=== PATIENT | female | born 1930 | race Caucasian/White ===

== ENCOUNTER 2016-12-24 18:45 | Emergency (ER) | payer MEDICARE, BC ==
[~2016-12-24] VITALS: Ht 152.4 cm; Wt 75.5 kg
[~2016-12-24 18:45] MED LIST: AMLO10 PO; Docusate Sod/Senna PO; GLUCTAB PO; LACT PO; LASI20TA PO; METO25CR PO; MIRA33502 PO; POTA-267 PO; RIVA20 PO; SYNT25TA PO; ZOCO80TA PO
[2016-12-24 18:48] VITALS: BP 142/79; PULSE 98; RESP 16; TEMP 98.2; O2SAT 98
[2016-12-24 19:09] VITALS: BP 183/83; PULSE 113; RESP 18; O2SAT 97
--- NOTE | 2016-12-24 19:23 | PD ---
HPI Chief Complaint: Pain: Acute or Chronic Time Seen by Provider: 19:19 Travel History International Travel<30 days: No Contact w/Intl Traveler<30days: No Traveled to known affect area: No History of Present Illness HPI 86-year-old female with history of multiple medical issues, presents to the ER today with sudden onset of left jaw pain last night, worsens with movement, is currently a 3 out 10 but she states initially started with an 8 out of 10. She denies any trouble swallowing, breathing, fevers, or any other symptoms. She had called her insurance line was told to come into be checked out. Modifying Factors: None Associated Signs & Symptoms: Left jaw pain Risk Factors: None PFSH Past Medical History Hx Anticoagulant Therapy: Yes Arthritis: Yes Asthma: No Autoimmune Disease: No Blood Disorders: No Anxiety: No Depression: No Heart Rhythm Problems: No Cancer: No Cardiovascular Problems: Yes (OPEN HEART, HTN, CHOL) High Cholesterol: Yes Chemotherapy: No Chest Pain: Yes (OCCAISIONALLY) Congestive Heart Failure: No (PT IS NOT SURE) COPD: No Cerebrovascular Accident: Yes (CVA) Diabetes: Yes Diminished Hearing: No Endocrine: No Gastrointestinal Disorders: Yes GERD: No Glaucoma: No Genitourinary: No Headaches: No Hepatitis: No Hiatal Hernia: No Hypertension: Yes Immune Disorder: No Kidney Stones: No Musculoskeletal: Yes Neurologic: Yes Psychiatric: No Reproductive: No Respiratory: No Immunizations Current: Yes Migraines: No Myocardial Infarction: No Radiation Therapy: No Renal Failure: No Seizures: No Sickle Cell Disease: No Sleep Apnea: No Thyroid Disease: No Ulcer: No ?: Not Menopausal: Yes : 1 Para: 1 Miscarriage: 0 : 0 Past Surgical History Abdominal Surgery: Yes AICD: No Appendectomy: Yes Arteriovenous Shunt: No Cardiac Surgery: No Cholecystectomy: No Coronary Artery Bypass Graft: Yes Ear Surgery: No Endocrine Surgery: No Eye Surgery: No Genitourinary Surgery: Yes (BOWEL RESECTION) Gynecologic Surgery: Yes (HYSTERECTOMY ) Hysterectomy: Yes Insulin Pump: No Joint Replacement: Yes (PARTIAL RT HIP) Oral Surgery: No Pacemaker: No Thoracic Surgery: Yes (OPEN HEART SURGERY WITH DOUBLE BYPASS 2008) Tonsillectomy: Yes Other Surgery: Yes (TONSILLECTOMY) Social History Alcohol Use: Yes (OCCASIONALLY) Tobacco Use: No Substance Use: No Allergies-Medications (Allergen,Severity, Reaction): Coded Allergies: No Known Allergies (Verified , 12/24/16) Reported Meds & Prescriptions Reported Meds & Active Scripts Active Reported Vitamin D3 (Cholecalciferol) 1,000 Unit Cap 1,000 Units PO DAILY Amlodipine (Amlodipine Besylate) 5 Mg Tab 5 Mg PO DAILY Clopidogrel (Clopidogrel Bisulfate) 75 Mg Tab 75 Mg PO DAILY Levothyroxine (Levothyroxine Sodium) 25 Mcg Tab 25 Mcg PO DAILY Losartan (Losartan Potassium) 25 Mg Tab 25 Mg PO DAILY Metformin (Metformin HCl) 1,000 Mg Tab 1,000 Mg PO BIDPC With meals Metoprolol Succinate ER 24 HR (Metoprolol Succinate) 25 Mg Tab 25 Mg PO DAILY Atorvastatin (Atorvastatin Calcium) 20 Mg Tab 20 Mg PO HS Review of Systems Except as stated in HPI: all other systems reviewed are Neg Physical Exam Narrative GENERAL: Well-developed elderly white female patient currently in mild distress. Awake and oriented 3. SKIN: Focused skin assessment warm/dry. HEAD: Atraumatic. Normocephalic. There is a notable tenderness and edema over the left mandible above the ankle, no underlying obvious fluctuance. No point tenderness. No claudication. EYES: Pupils equal and round. No scleral icterus. No injection or drainage. ENT: No nasal bleeding or discharge. Mucous membranes pink and moist. I do not see any signs of pus drainage. EARS: Bilateral pinnae and external canals appear within normal limits. Bilateral tympanic membranes without erythema, dullness or perforation. NECK: Trachea midline. No JVD. CARDIOVASCULAR: Regular rate and rhythm. No murmur appreciated. RESPIRATORY: No accessory muscle use. Clear to auscultation. Breath sounds equal bilaterally. GASTROINTESTINAL: Abdomen soft, non-tender, nondistended. Hepatic and splenic margins not palpable. MUSCULOSKELETAL: No obvious deformities. No clubbing. No cyanosis. No edema. NEUROLOGICAL: Awake and alert. No obvious cranial nerve deficits. Motor grossly within normal limits. Normal speech. PSYCHIATRIC: Appropriate mood and affect; insight and judgment normal. Data Data Last Documented VS Vital Signs Date Time Temp Pulse Resp B/P Pulse Ox O2 Delivery O2 Flow Rate FiO2 12/24/16 19:09 113 18 183/83 97 Room Air 12/24/16 18:48 98.2 Orders Complete Blood Count With Diff (12/24/16 19:19) Basic Metabolic Panel (Bmp) (12/24/16 19:19) Ct Facial Bones W Iv Contrast (12/24/16 ) Iohexol 350 Inj (Omnipaque 350 Inj) (12/24/16 21:14) Blood Culture (12/24/16 21:48) Clindamycin Inj (Cleocin Inj) (12/24/16 22:00) Labs Laboratory Tests Test 12/24/16 19:37 White Blood Count 13.1 TH/MM3 Red Blood Count 5.17 MIL/MM3 Hemoglobin 14.7 GM/DL Hematocrit 44.7 % Mean Corpuscular Volume 86.6 FL Mean Corpuscular Hemoglobin 28.4 PG Mean Corpuscular Hemoglobin 32.8 % Concent Red Cell Distribution Width 14.2 % Platelet Count 305 TH/MM3 Mean Platelet Volume 7.6 FL Neutrophils (%) (Auto) 71.4 % Lymphocytes (%) (Auto) 20.2 % Monocytes (%) (Auto) 7.6 % Eosinophils (%) (Auto) 0.4 % Basophils (%) (Auto) 0.4 % Neutrophils # (Auto) 9.3 TH/MM3 Lymphocytes # (Auto) 2.6 TH/MM3 Monocytes # (Auto) 1.0 TH/MM3 Eosinophils # (Auto) 0.1 TH/MM3 Basophils # (Auto) 0.1 TH/MM3 CBC Comment DIFF FINAL Differential Comment Sodium Level 143 MEQ/L Potassium Level 3.9 MEQ/L Chloride Level 107 MEQ/L Carbon Dioxide Level 28.3 MEQ/L Anion Gap 8 MEQ/L Blood Urea Nitrogen 15 MG/DL Creatinine 0.91 MG/DL Estimat Glomerular Filtration 58 ML/MIN Rate Random Glucose 189 MG/DL Calcium Level 10.0 MG/DL [facility] Medical Decision Making Medical Screen Exam Complete: Yes Emergency Medical Condition: Yes Medical Record Reviewed: Yes Interpretation(s) Laboratory Tests Test 12/24/16 19:37 White Blood Count 13.1 TH/MM3 (4.0-11.0) Neutrophils (%) (Auto) 71.4 % (16.0-70.0) Neutrophils # (Auto) 9.3 TH/MM3 (1.8-7.7) Monocytes # (Auto) 1.0 TH/MM3 (0-0.9) Estimat Glomerular Filtration 58 ML/MIN (>89) Rate Random Glucose 189 MG/DL (74-106) Last [address] 12/24/16 0000 Signed Impressions: Service Date/Time: Saturday, December 24, 2016 20:48 - CONCLUSION: 1. The left parotid gland is enlarged and more indistinct than the right. There is mild surrounding inflammatory change most characteristic of inflammation or infection. There is no focal mass or calcification. 2. The mandible is intact with no underlying bony abnormality. Qamar Lr MD Differential Diagnosis Left jaw painmandibular dislocation versus parotiditis versus TMJ Narrative Course CAT scan is showing signs of prostatitis. It appears that according to her and her friends, symptoms started yesterday but became more apparent in the evening. She does not have any underlying bony issues. At this point, patient is afebrile and as precaution, IV antibiotics will be given. There are no signs of underlying abscess. She does not appear acutely ill. Cultures will be taken a my plan would be to release her with close follow-up to primary care physician. She should return for any worsening in symptoms. The plan has been discussed with her and she states understanding. Diagnosis Primary Impression: Parotitis Med/Other Pt SpecificInfo: Prescription(s) given Scripts Clindamycin 300 Mg [id number] Mg PO TID #21 CAP Ref 0 Prov:Luly Flowers MD 12/24/16 Ibuprofen (Motrin Ib)200 Mg [id number] Mg PO QID PRN (PAIN SCALE 1 TO 10) #20 Prov:Luly Flowers MD 12/24/16 Disposition: 01 DISCHARGE HOME Condition: Stable Luly Flowers MD Dec 24, 2016 19:23
[2016-12-24 19:44] LABS: AUTOMATED NEUTROPHIL # 9.3 TH/MM3 (1.8-7.7); BASOPHIL # 0.1 TH/MM3 (0-0.2); BASOPHIL % 0.4 % (0.0-2.0); EOSINOPHIL # 0.1 TH/MM3 (0-0.4); EOSINOPHIL % 0.4 % (0.0-4.0); HEMATOCRIT 44.7 % (35.0-46.0); HEMO FLAGS DIFF FINAL; LYMPH % 20.2 % (9.0-44.0); LYMPHOCYTE # 2.6 TH/MM3 (1.0-4.8); MEAN CELL VOLUME 86.6 FL (80.0-100.0); MEAN CORPUSCULAR HEMOGLOBIN 28.4 PG (27.0-34.0); MEAN CORPUSCULAR HGB CONC 32.8 % (32.0-36.0); MONO % 7.6 % (0.0-8.0); NEUT % 71.4 % (16.0-70.0); PLATELET COUNT 305 TH/MM3 (150-450); RED BLOOD COUNT 5.17 MIL/MM3 (4.00-5.30); RED CELL DISTRIBUTION WIDTH 14.2 % (11.6-17.2); WHITE BLOOD COUNT 13.1 TH/MM3 (4.0-11.0)
[2016-12-24] MEDS ORDERED: CLOP75TA PO (19:44)
[2016-12-24] MEDS ORDERED: VITA100036 PO (19:44)
[2016-12-24] MEDS ORDERED: METF1000 PO (19:44)
[2016-12-24] MEDS ORDERED: ATOR20TA15 PO (19:44)
[2016-12-24] MEDS ORDERED: AMLO5TAB2 PO (19:44)
[2016-12-24] MEDS ORDERED: LEVO25TA4 PO (19:44)
[2016-12-24] MEDS ORDERED: METO25TA6 PO (19:44)
[2016-12-24] MEDS ORDERED: LOSA25TA PO (19:44)
[2016-12-24 19:56] LABS: POTASSIUM 3.9 MEQ/L (3.5-5.1)
[2016-12-24 19:59] LABS: BICARBONATE 28.3 MEQ/L (21.0-32.0)
[2016-12-24 20:20] VITALS: BP 172/79; PULSE 82; RESP 18; O2SAT 97
[2016-12-24] MEDS ORDERED: IOHEXOL 350 MG/ML 10 ML VIAL (for RAD DIAG) IV ONE (21:14)
--- NOTE | 2016-12-24 21:29 | RADRPT ---
EXAM DATE/TIME: 12/24/2016 20:48 [facility] COMPARISON: No previous studies available for comparison. INDICATIONS : Left jaw pain and swelling. Difficulty eating. IV CONTRAST: 70 cc Omnipaque 350 (iohexol) IV RADIATION DOSE: 29.69 CTDIvol (mGy) MEDICAL HISTORY : Hypertension. Hypercholesterolemia. Cardiovascular diseaseDiabetic, CVA SURGICAL HISTORY : Open heart ENCOUNTER: Initial ACUITY: 1 day PAIN SCALE: 9/10 LOCATION: Left facial tmj area TECHNIQUE: Volumetric scanning of the facial bones was performed. Using automated exposure control and adjustme nt of the mA and/or kV according to patient size, radiation dose was kept as low as reasonably achiev able to obtain optimal diagnostic quality images. DICOM format image data is available electronicall y for review and comparison. FINDINGS: ORBITS: The orbital and infraorbital osseous structures are intact. The retroconal structures have a normal configuration. No radiopaque foreign bodies are seen. The mandible is intact. NASAL BONE: The nasal bone and maxillary spine are intact ZYGOMATIC ARCHES: Symmetric without evidence of fracture. SINUSES: The maxillary, ethmoid and frontal sinuses are intact. No air-fluid levels seen. NASAL CAVITY: The nasal septum is intact and midline. The lacrimal ducts are intact. SOFT TISSUES: No radiopaque foreign bodies seen. The left parotid gland is enlarged and more inhomogeneous than the right with apparent mild surrounding inflammatory change. There is no focal mass. There are no abnor mal calcifications. INTRACRANIAL: No intracranial air seen. CRIBIFORM PLATE: Grossly intact. CONCLUSION: 1. The left parotid gland is enlarged and more indistinct than the right. There is mild surrounding i nflammatory change most characteristic of inflammation or infection. There is no focal mass or calcif ication. 2. The mandible is intact with no underlying bony abnormality. Qamar Lr MD on December 24, 2016 at 21:23 Board Certified Radiologist. This report was verified electronically.
[2016-12-24 21:30] VITALS: BP 168/82; PULSE 78; RESP 17; O2SAT 97
[2016-12-24] MEDS ORDERED: IBUP-1129 PO (22:00)
[2016-12-24] MEDS ORDERED: CLIN1CAP6 PO (22:00)
[2016-12-24] MEDS ORDERED: CLINDAMYCIN INJ 600 MG in SODIUM CHLORIDE 0.9% INJ 100 ML IV ONE (22:00)
[2016-12-24 22:31] VITALS: BP 151/83; PULSE 100; RESP 19; O2SAT 98
[2016-12-24 23:15] VITALS: BP 160/81; TEMP 98
== END 2016-12-24 23:27 | disposition home or self-care (01) ==
LOC: PHED 18:45
DX: K11.20 Sialoadenitis, unspecified (principal)
CPT/HCPCS: 70487; 80048; 85025; 87040; 96365; 99285; Q9967

== ENCOUNTER 2017-10-27 08:36 | Emergency (ER) | payer MEDICARE, BC ==
[~2017-10-27] VITALS: Ht 157.5 cm; Wt 70.4 kg
[~2017-10-27 08:36] MED LIST changes: -AMLO10 PO; +AMLO5TAB2 PO; +ATOR20TA15 PO; +CHOL10008 PO; +CLIN300C5 PO; +CLOP75TA PO; -Docusate Sod/Senna PO; -GLUCTAB PO; +IBUP-1129 PO; -LACT PO; -LASI20TA PO; +LEVO25TA4 PO; +LOSA25TA PO; +METF1000 PO; +METO1TAB42 PO; -METO25CR PO; -MIRA33502 PO; -POTA-267 PO; -RIVA20 PO; -SYNT25TA PO; -ZOCO80TA PO
[2017-10-27 08:39] VITALS: BP 138/66; PULSE 87; RESP 16; TEMP 97.7; O2SAT 95
--- NOTE | 2017-10-27 09:18 | PD ---
HPI Chief Complaint: Fall Time Seen by Provider: 09:00 Travel History International Travel<30 days: No Contact w/Intl Traveler<30days: No Traveled to known affect area: No History of Present Illness HPI 87-year-old female with a history of CVA with right-sided residual weakness presents emergency department for evaluation of low back, right hip and right leg pain after a fall that occurred this morning. Patient states that she was walking to the bathroom when her leg "buckled" and she fell to the ground onto her right hip. Patient states that she was unable to stand up and required the assistance of her daughter to get up. Patient says that her lower lumbar spine is painful, mild to moderate in severity, worse with movement that decreases with rest and nonradiating. Patient also states that she has some right hip and right leg pain that is also worse with movement. Denies numbness or tingling the extremities. Denies fever, chills, loss of bowel or bladder function, IV drug use, saddle anesthesia. Says she does have a history of arthritis in the right knee as well. Denies head trauma, loss of consciousness. Says she is on Plavix for her previous CVA. She has no other complaints today. PFSH Past Medical History Hx Anticoagulant Therapy: Yes (CLOPEDIGREL) Arthritis: Yes Asthma: No Autoimmune Disease: No Blood Disorders: No Anxiety: No Depression: No Heart Rhythm Problems: No Cancer: No Cardiovascular Problems: Yes (OPEN HEART, HTN, CHOL) High Cholesterol: Yes Chemotherapy: No Chest Pain: Yes (OCCAISIONALLY) COPD: No Cerebrovascular Accident: Yes (CVA) Diabetes: Yes (METFORMIN) Patient Takes Glucophage: Yes Diminished Hearing: No Endocrine: No Gastrointestinal Disorders: Yes GERD: No Glaucoma: No Genitourinary: No Headaches: No Hepatitis: No Hiatal Hernia: No Hypertension: Yes Immune Disorder: No Kidney Stones: No Musculoskeletal: Yes Neurologic: Yes Psychiatric: No Reproductive: No Respiratory: No Immunizations Current: Yes Migraines: No Myocardial Infarction: No Radiation Therapy: No Renal Failure: No Seizures: No Sickle Cell Disease: No Sleep Apnea: No Thyroid Disease: No Ulcer: No Influenza Vaccination: No Menopausal: Yes : 1 Para: 1 Miscarriage: 0 : 0 Past Surgical History Abdominal Surgery: Yes AICD: No Appendectomy: Yes Arteriovenous Shunt: No Cardiac Surgery: No Cholecystectomy: No Coronary Artery Bypass Graft: Yes Ear Surgery: No Endocrine Surgery: No Eye Surgery: No Genitourinary Surgery: Yes (BOWEL RESECTION) Gynecologic Surgery: Yes (HYSTERECTOMY ) Hysterectomy: Yes Insulin Pump: No Joint Replacement: Yes (PARTIAL RT HIP) Oral Surgery: No Pacemaker: No Thoracic Surgery: Yes (OPEN HEART SURGERY WITH DOUBLE BYPASS 2008) Tonsillectomy: Yes Other Surgery: Yes (TONSILLECTOMY) Social History Alcohol Use: Yes (SOC) Tobacco Use: No Substance Use: No Allergies-Medications (Allergen,Severity, Reaction): Coded Allergies: No Known Allergies (Verified Adverse Reaction, Unknown, 10/27/17) Reported Meds & Prescriptions Reported Meds & Active Scripts Active Reported Vitamin D3 (Cholecalciferol) 1,000 Unit Cap 1,000 Units PO DAILY Amlodipine (Amlodipine Besylate) 5 Mg Tab 5 Mg PO DAILY Clopidogrel (Clopidogrel Bisulfate) 75 Mg Tab 75 Mg PO DAILY Levothyroxine (Levothyroxine Sodium) 25 Mcg Tab 25 Mcg PO DAILY Losartan (Losartan Potassium) 25 Mg Tab 25 Mg PO DAILY Metformin (Metformin HCl) 1,000 Mg Tab 1,000 Mg PO BIDPC With meals Metoprolol Succinate ER 24 HR (Metoprolol Succinate) 25 Mg Tab 25 Mg PO DAILY Review of Systems Except as stated in HPI: all other systems reviewed are Neg Physical Exam Narrative GENERAL: Well-nourished, well-developed patient. SKIN: Focused skin assessment warm/dry. HEAD: Normocephalic. EYES: No scleral icterus. No injection or drainage. PERRLA, EOMI NECK: Supple, trachea midline. No JVD or lymphadenopathy. No midline tenderness CARDIOVASCULAR: Regular rate and rhythm without murmurs, gallops, or rubs. RESPIRATORY: Breath sounds equal bilaterally. No accessory muscle use. MUSCULOSKELETAL: No cyanosis, or edema. Right lower extremity-slightly shortened compared to the left, normal per patient. Position of comfort is slightly externally rotated hip. NEUROLOGICAL: Awake and alert. Cranial nerves II through XII intact. Motor and sensory grossly within normal limits. Five out of 5 muscle strength in all muscle groups. Normal speech. BACK: Tenderness palpation without step-offs or deformities to the L1-L2 region. Data Data Last Documented VS Vital Signs Date Time Temp Pulse Resp B/P (MAP) Pulse Ox O2 Delivery O2 Flow Rate FiO2 5/11/18 08:39 97.7 87 16 138/66 (90) [address] Lumb Spine W/O Contrast (10/27/17 ) Pelvis, Ap Only (Routine) (10/27/17 ) Femur (Ap & Lat/2vws) (10/27/17 ) MDM Medical Decision Making Medical Screen Exam Complete: Yes Emergency Medical Condition: Yes Differential Diagnosis R hip, leg: contusion, bursitis, cellulitis, fracture, osteonecrosis, avascular necrosis, sprain, strain: lumbago, sciatica, muscle spasms, fracture, cauda equina syndrome Narrative Course 87-year-old female presents emergency department complaining of low back, right hip, right leg pain after fall that occurred early this morning. Patient states that she was walking to the bathroom when her leg buckled and she fell to the ground. She required assistance of her daughter to stand up. The patient normally walks with a walker and has residual right-sided weakness after CVA. Denies head trauma, loss of consciousness. Denies pain anywhere else. Images ordered for evaluation. Vital signs are stable. Pt will be discharged home. She has her daughter who assists her at home. Muscle relaxers for muscular strain. Advised to follow up with her PCP. Family states they would call her primary care physician and follow-up as discussed. Diagnosis Primary Impression: Lumbar sprain Qualified Codes: S33.5XXA - Sprain of ligaments of lumbar spine, initial encounter Additional Impressions: Contusion, hip Qualified Codes: S70.01XA - Contusion of right hip, initial encounter Contusion of leg, right Qualified Codes: S80.11XA - Contusion of right lower leg, initial encounter Referrals: Orthopedist Primary Care Physician Additional Instructions: Use ice or heat for symptom relief. If no contraindications, you may use Tylenol or Motrin per package instructions for your pain. I recommend following up with your primary care physician and consider physical therapy for generalized deconditioning of the muscles. If symptoms persist or worsen, return to the emergency department. Follow up with your primary care physician within 2 days. Use caution while taking muscle relaxers as a may make you feel drowsy. Take initially at night to assess for tolerance. Take only as needed for muscle strain. Scripts Methocarbamol (Robaxin) 500 Mg Tab 500 MG PO TID for Muscle Spasm for 3 Days, TAB 0 Refills Take 1/2 to 1 tab up to 3 times daily for muscle strain. Use caution when taking this medication as it make make you drowsy. Take initially at night to assess for tolerance. Prov: Kevin Hill MD 10/27/17 Disposition: 01 DISCHARGE HOME Condition: Stable Reanan Leigh October 27, 2017 09:18
--- NOTE | 2017-10-27 10:13 | RADRPT ---
EXAM DATE/TIME: 10/27/2017 09:38 [facility] COMPARISON: No previous studies available for comparison. INDICATIONS : Trauma. Fall. Low back pain. RADIATION DOSE: 39.51 CTDIvol (mGy) MEDICAL HISTORY : Diabetes mellitus type 2. Cerebrovascular disease. Myocardial infarction.Hypertension. SURGICAL HISTORY : Hysterectomy. CABGAppendectomy. ENCOUNTER: Initial ACUITY: 1 day PAIN SCALE: 8/10 LOCATION: Lumbar spine. TECHNIQUE: Volumetric scanning of the lumbar spine was performed. Multiplanar reconstructions in the sagittal, coronal and oblique axial planes were performed. Using automated exposure control and adjustment of the mA and/or kV according to patient size, radiation dose was kept as low as reasonably achievable t o obtain optimal diagnostic quality images. DICOM format image data is available electronically for review and comparison. FINDINGS: No acute fracture or spondylolisthesis. Moderate degenerative disc disease in lumbar spine. The bones are osteopenic. Degenerative changes result in mild canal stenosis at L2-3 and L3-4 and a focal mode rate canal stenosis at L4-5. Mild foraminal stenosis bilaterally at the lumbosacral junction. CONCLUSION: 1. No acute findings. Osteopenia. Degenerative disc disease with at least moderate focal canal stenos is at L4-5. Jairo Garland MD on October 27, 2017 at 10:07 Board Certified Radiologist. This report was verified electronically.
--- NOTE | 2017-10-27 10:28 | RADRPT ---
EXAM DATE/TIME: 10/27/2017 09:26 [facility] COMPARISON: No previous studies available for comparison. INDICATIONS : Right hip and leg pain post fall. MEDICAL HISTORY : Hypertension. Hypercholesterolemia. Cardiovascular diseaseDiabetic, CVA SURGICAL HISTORY : CABG. Right hip ENCOUNTER: Initial ACUITY: 1 day PAIN SCORE: 5/10 LOCATION: Right hip FINDINGS: A single frontal view of the pelvis demonstrates no evidence of fracture. The bony pelvic ring is in tact. Bony mineralization is decreased. The soft tissues are intact. CONCLUSION: 1. Ramesh fixation right femur. Osteopenia. No acute bony abnormalities. Jairo Garland MD on October 27, 2017 at 10:24 Board Certified Radiologist. This report was verified electronically.
--- NOTE | 2017-10-27 10:32 | RADRPT ---
EXAM DATE/TIME: 10/27/2017 09:26 [facility] COMPARISON: No previous studies available for comparison. INDICATIONS : Right hip and leg pain post fall. MEDICAL HISTORY : Hypertension. Hypercholesterolemia. Cardiovascular diseaseDiabetic, CVA SURGICAL HISTORY : CABG. Right hip ENCOUNTER: Initial ACUITY: 1 day PAIN SCORE: 3/10 LOCATION: Right hip FINDINGS: Two view examination of the right femur demonstrates sandy fixation of the proximal right femur. Osteop enia. Moderate to severe osteoarthritis of the right knee. Extensive arterial vascular calcifications identified. CONCLUSION: 1. No acute bony abnormality. Jairo Garland MD on October 27, 2017 at 10:26 Board Certified Radiologist. This report was verified electronically.
[2017-10-27] MEDS ORDERED: ROBA500T PO (10:40)
[2017-10-27 10:45] VITALS: BP 139/70
== END 2017-10-27 10:53 | disposition home or self-care (01) ==
LOC: PHEFT 08:36
DX: S33.5XXA Sprain of ligaments of lumbar spine, initial encounter (principal); S70.01XA Contusion of right hip, initial encounter; S80.11XA Contusion of right lower leg, initial encounter; W19.XXXA Unspecified fall, initial encounter; I69.351 Hemiplegia and hemiparesis following cerebral infarction affecting right dominant side; M17.11 Unilateral primary osteoarthritis, right knee; E78.00 Pure hypercholesterolemia, unspecified; E11.9 Type 2 diabetes mellitus without complications; I10 Essential (primary) hypertension
CPT/HCPCS: 72131; 72170; 73552; 99284